=== PATIENT | male | born 1985 | race Caucasian/White ===

== ENCOUNTER 2022-06-01 11:17 | Emergency (ER) | payer BC ==
[2022-06-01] MEDS ORDERED: Ibuprofen 200 MG TAB ONE (11:42)
== END 2022-06-01 12:53 | disposition home or self-care (01) ==
LOC: CSHERS 11:17
DX: J10.1 Influenza due to other identified influenza virus with other respiratory manifestations (principal); Z20.822 Contact with and (suspected) exposure to COVID-19
CPT/HCPCS: 87804; 99283